=== PATIENT | female | born 1955 | race Caucasian/White ===

== ENCOUNTER 2020-10-21 11:00 | Outpatient (RCR) | payer MEDICARE, SELFPAY ==
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
--- NOTE | 2020-08-20 13:59 | P.PNPS_ITS ---
TMS Daily Progress Note Daily TMS Progress Note Week #: 1 Treatment #(10-30): 1 PHQ-9 Pre-Treatment (10-27): 18 at intake PHQ-9 Most Recent (10-27): 18 CGI-I Most Recent: 0 = Not Assessed Reviewed: TMS Mapping/Re-mapping completed (Uncomplicated initial mapping) Verification: I have reviewed the TMS Instructor Pilot Note and agree with the contents. The patient remains a candidate to continue TMS treatment per protocol.
--- NOTE | 2020-08-23 16:00 | HO.TMSDAILY2 ---
TMS Daily Progress Note Daily TMS Progress Note Week #: 1 Treatment #(10-30): 2 PHQ-9 Pre-Treatment (10-27): 18 PHQ-9 Most Recent (10-27): 18 CGI-I Most Recent: 0 = Not Assessed Reviewed: TMS Tech Note Reviewed Verification: I have reviewed the TMS Bricklayer Tender Note and agree with the contents. The patient remains a candidate to continue TMS treatment per protocol.
--- NOTE | 2020-08-23 16:03 | P.PNPS_ITS ---
TMS Daily Progress Note Daily TMS Progress Note Week #: 1 Treatment #(10-30): 2 PHQ-9 Pre-Treatment (10-27): 18 PHQ-9 Most Recent (10-27): 18 CGI-I Most Recent: 0 = Not Assessed Reviewed: TMS Tech Note Reviewed Verification: I have reviewed the TMS Supervisor Floor Assembly Note and agree with the contents. The patient remains a candidate to continue TMS treatment per protocol.
--- NOTE | 2020-08-24 23:14 | P.PNPS_ITS ---
TMS Daily Progress Note Daily TMS Progress Note Date of Service: 08/31/20 Week #: 1 Treatment #(10-30): 3 PHQ-9 Pre-Treatment (10-27): 18 PHQ-9 Most Recent (10-27): 18 CGI-I Most Recent: 0 = Not Assessed Reviewed: TMS Tech Note Reviewed Verification: I have reviewed the TMS Superintendent Laundry Note and agree with the contents. The patient remains a candidate to continue TMS treatment per protocol.
--- NOTE | 2020-08-25 05:45 | HO.TMSDAILY2 ---
TMS Daily Progress Note Daily TMS Progress Note Date of Service: 08/26/20 Week #: 1 Treatment #(10-30): 4 PHQ-9 Pre-Treatment (-): 18 PHQ-9 Most Recent (10-27): 14 CRISTOBAL-7 Pre-Treatment (0-21): 5 CRISTOBAL-7 Most Recent (0-21): 5 CGI-I Most Recent: 4 = No Change Q-LES-Q-SF Most Recent: 25 Reviewed: TMS Tech Note Reviewed Verification: I have reviewed the TMS Special Education Coordinator Note and agree with the contents. The patient remains a candidate to continue TMS treatment per protocol.
--- NOTE | 2020-08-30 17:28 | HO.TMSDAILY2 ---
TMS Daily Progress Note Daily TMS Progress Note Date of Service: 08/30/20 Week #: 1 Treatment #(10-30): 5 PHQ-9 Pre-Treatment (-): 18 PHQ-9 Most Recent (10-27): 14 CRISTOBAL-7 Pre-Treatment (0-21): 5 CRISTOBAL-7 Most Recent (0-21): 5 CGI-I Most Recent: 4 = No Change Q-LES-Q-SF Most Recent: 25 Reviewed: TMS Tech Note Reviewed Verification: I have reviewed the TMS Package Dyeing Machine Operator Note and agree with the contents. The patient remains a candidate to continue TMS treatment per protocol.
--- NOTE | 2020-08-31 23:22 | HO.TMSDAILY2 ---
TMS Daily Progress Note Daily TMS Progress Note Date of Service: 08/31/20 Week #: 2 Treatment #(-30): 6 PHQ-9 Pre-Treatment (1-): 18 PHQ-9 Most Recent (-): 14 CRISTOBAL-7 Pre-Treatment (0-21): 5 CRISTOBAL-7 Most Recent (0-21): 5 CGI-I Most Recent: 4 = No Change Q-LES-Q-SF Most Recent: 25 Reviewed: TMS Tech Note Reviewed Verification: I have reviewed the TMS Institution Librarian Note and agree with the contents. The patient remains a candidate to continue TMS treatment per protocol.
--- NOTE | 2020-09-01 08:12 | HO.TMSDAILY2 ---
TMS Daily Progress Note Daily TMS Progress Note Date of Service: 09/01/20 Week #: 2 Treatment #(-30): 7 PHQ-9 Pre-Treatment (1-): 18 PHQ-9 Most Recent (-): 14 CRISTOBAL-7 Pre-Treatment (0-21): 5 CRISTOBAL-7 Most Recent (0-21): 5 CGI-I Most Recent: 4 = No Change Q-LES-Q-SF Most Recent: 25 Reviewed: TMS Tech Note Reviewed Verification: I have reviewed the TMS Radio Repairer Domestic Note and agree with the contents. The patient remains a candidate to continue TMS treatment per protocol.
--- NOTE | 2020-09-02 16:49 | HO.TMSDAILY2 ---
TMS Daily Progress Note Daily TMS Progress Note Date of Service: 09/02/20 Week #: 2 Treatment #(-30): 8 PHQ-9 Pre-Treatment (1-): 18 PHQ-9 Most Recent (-): 14 CRISTOBAL-7 Pre-Treatment (0-21): 5 CRISTOBAL-7 Most Recent (0-21): 5 CGI-I Most Recent: 4 = No Change Q-LES-Q-SF Most Recent: 25 Reviewed: TMS Tech Note Reviewed Verification: I have reviewed the TMS Retort Condenser Attendant Note and agree with the contents. The patient remains a candidate to continue TMS treatment per protocol.
--- NOTE | 2020-09-02 16:51 | HO.TMSDAILY2 ---
TMS Daily Progress Note Daily TMS Progress Note Date of Service: 09/03/20 Week #: 2 Treatment #(-30): 9 PHQ-9 Pre-Treatment (1-): 18 PHQ-9 Most Recent (-): 14 CRISTOBAL-7 Pre-Treatment (0-21): 5 CRISTOBAL-7 Most Recent (0-21): 5 CGI-I Most Recent: 4 = No Change Q-LES-Q-SF Most Recent: 25 Reviewed: TMS Tech Note Reviewed Verification: I have reviewed the TMS Supervisor Pyrotechnic Loading Note and agree with the contents. The patient remains a candidate to continue TMS treatment per protocol.
--- NOTE | 2020-09-06 19:02 | HO.TMSDAILY2 ---
TMS Daily Progress Note Daily TMS Progress Note Date of Service: 09/06/20 Week #: 2 Treatment #(-30): 10 PHQ-9 Pre-Treatment (1-): 18 PHQ-9 Most Recent (-): 14 CRISTOBAL-7 Pre-Treatment (0-21): 5 CRISTOBAL-7 Most Recent (0-21): 5 CGI-I Most Recent: 4 = No Change Q-LES-Q-SF Most Recent: 25 Reviewed: TMS Tech Note Reviewed Verification: I have reviewed the TMS Forest Practices Field Coordinator Note and agree with the contents. The patient remains a candidate to continue TMS treatment per protocol.
--- NOTE | 2020-09-07 20:40 | P.PNPS_ITS ---
TMS Daily Progress Note Daily TMS Progress Note Date of Service: 09/07/20 Week #: 3 Treatment #(-30): 11 PHQ-9 Pre-Treatment (1-): 18 PHQ-9 Most Recent (-): 14 CRISTOBAL-7 Pre-Treatment (0-21): 5 CRISTOBAL-7 Most Recent (0-21): 5 CGI-I Most Recent: 4 = No Change Q-LES-Q-SF Most Recent: 25 Reviewed: TMS Tech Note Reviewed Verification: I have reviewed the TMS Die Cutter Apprentice Note and agree with the contents. The patient remains a candidate to continue TMS treatment per protocol.
--- NOTE | 2020-09-08 20:53 | HO.TMSDAILY2 ---
TMS Daily Progress Note Daily TMS Progress Note Date of Service: 09/08/20 Week #: 3 Treatment #(-30): 12 PHQ-9 Pre-Treatment (1-): 18 PHQ-9 Most Recent (-): 14 CRISTOBAL-7 Pre-Treatment (0-21): 5 CRISTOBAL-7 Most Recent (0-21): 5 CGI-I Most Recent: 4 = No Change Q-LES-Q-SF Most Recent: 25 Reviewed: TMS Tech Note Reviewed Verification: I have reviewed the TMS Business Support Liaison Note and agree with the contents. The patient remains a candidate to continue TMS treatment per protocol.
--- NOTE | 2020-09-10 09:01 | P.PNPS_ITS ---
TMS Daily Progress Note Daily TMS Progress Note Date of Service: 09/09/20 Week #: 3 Treatment #(-30): 13 PHQ-9 Pre-Treatment (1-): 18 PHQ-9 Most Recent (10-27): 14 CRISTOBAL-7 Pre-Treatment (0-21): 5 CRISTOBAL-7 Most Recent (0-21): 5 CGI-I Most Recent: 4 = No Change Q-LES-Q-SF Most Recent: 25 Reviewed: TMS Tech Note Reviewed (Late entry for 09/09/20) Verification: I have reviewed the TMS Critical Care Registered Nurse Note and agree with the contents. The patient remains a candidate to continue TMS treatment per protocol.
--- NOTE | 2020-09-10 16:01 | P.PNPS_ITS ---
TMS Daily Progress Note Daily TMS Progress Note Date of Service: 09/10/20 Week #: 3 Treatment #(-30): 14 PHQ-9 Pre-Treatment (1-): 18 PHQ-9 Most Recent (-): 14 CRISTOBAL-7 Pre-Treatment (0-21): 5 CRISTOBAL-7 Most Recent (0-21): 5 CGI-I Most Recent: 4 = No Change Q-LES-Q-SF Most Recent: 25 Reviewed: TMS Tech Note Reviewed Verification: I have reviewed the TMS Slitter Cut Off Operator Note and agree with the contents. The patient remains a candidate to continue TMS treatment per protocol.
--- NOTE | 2020-09-13 15:01 | P.PNPS_ITS ---
TMS Daily Progress Note Daily TMS Progress Note Date of Service: 09/13/20 Week #: 3 Treatment #(-30): 15 PHQ-9 Pre-Treatment (1-): 18 PHQ-9 Most Recent (-): 14 CRISTOBAL-7 Pre-Treatment (0-21): 5 CRISTOBAL-7 Most Recent (0-21): 5 CGI-I Most Recent: 4 = No Change Q-LES-Q-SF Most Recent: 25 Reviewed: TMS Tech Note Reviewed Verification: I have reviewed the TMS Historical Site Guide Note and agree with the contents. The patient remains a candidate to continue TMS treatment per protocol.
--- NOTE | 2020-09-14 11:14 | HO.TMSDAILY2 ---
TMS Daily Progress Note Daily TMS Progress Note Date of Service: 09/14/20 Week #: 3 Treatment #(-30): 15 PHQ-9 Pre-Treatment (1-): 18 PHQ-9 Most Recent (-): 14 CRISTOBAL-7 Pre-Treatment (0-21): 5 CRISTOBAL-7 Most Recent (0-21): 5 CGI-I Most Recent: 4 = No Change Q-LES-Q-SF Most Recent: 25 Reviewed: TMS Tech Note Reviewed Verification: I have reviewed the TMS Program Research Specialist Note and agree with the contents. The patient remains a candidate to continue TMS treatment per protocol.
--- NOTE | 2020-09-14 11:16 | HO.TMSDAILY2 ---
TMS Daily Progress Note Daily TMS Progress Note Date of Service: 09/14/20 Week #: 4 Treatment #(-30): 16 PHQ-9 Pre-Treatment (1-): 18 PHQ-9 Most Recent (-): 14 CRISTOBAL-7 Pre-Treatment (0-21): 5 CRISTOBAL-7 Most Recent (0-21): 5 CGI-I Most Recent: 4 = No Change Q-LES-Q-SF Most Recent: 25 Reviewed: TMS Tech Note Reviewed Verification: I have reviewed the TMS Poolroom Table Attendant Note and agree with the contents. The patient remains a candidate to continue TMS treatment per protocol.
--- NOTE | 2020-09-15 15:46 | HO.TMSDAILY2 ---
TMS Daily Progress Note Daily TMS Progress Note Date of Service: 09/15/20 Week #: 4 Treatment #(-30): 17 PHQ-9 Pre-Treatment (1-): 18 PHQ-9 Most Recent (10-27): 14 CRISTOBAL-7 Pre-Treatment (0-21): 5 CRISTOBAL-7 Most Recent (0-21): 5 CGI-I Most Recent: 4 = No Change Q-LES-Q-SF Most Recent: 25 Reviewed: TMS Tech Note Reviewed Verification: I have reviewed the TMS Conveyor Technician Note and agree with the contents. The patient remains a candidate to continue TMS treatment per protocol.
--- NOTE | 2020-09-17 17:32 | HO.TMSDAILY2 ---
TMS Daily Progress Note Daily TMS Progress Note Date of Service: 09/17/20 Week #: 4 Treatment #(-30): 18 PHQ-9 Pre-Treatment (1-): 18 PHQ-9 Most Recent (10-27): 14 CRISTOBAL-7 Pre-Treatment (0-21): 5 CRISTOBAL-7 Most Recent (0-21): 5 CGI-I Most Recent: 4 = No Change Q-LES-Q-SF Most Recent: 25 Reviewed: TMS Tech Note Reviewed Verification: I have reviewed the TMS Senior Oracle Adf Developer Note and agree with the contents. The patient remains a candidate to continue TMS treatment per protocol.
--- NOTE | 2020-09-20 17:51 | HO.TMSDAILY2 ---
TMS Daily Progress Note Daily TMS Progress Note Date of Service: 09/21/20 Week #: 4 Treatment #(-30): 19 PHQ-9 Pre-Treatment (1-): 18 PHQ-9 Most Recent (-): 14 CRISTOBAL-7 Pre-Treatment (0-21): 5 CRISTOBAL-7 Most Recent (0-21): 5 CGI-I Most Recent: 4 = No Change Q-LES-Q-SF Most Recent: 25 Reviewed: TMS Tech Note Reviewed Verification: I have reviewed the TMS Software Validation Engineer Note and agree with the contents. The patient remains a candidate to continue TMS treatment per protocol.
--- NOTE | 2020-09-21 22:52 | HO.TMSDAILY2 ---
TMS Daily Progress Note Daily TMS Progress Note Date of Service: 09/21/20 Week #: 4 Treatment #(-30): 20 PHQ-9 Pre-Treatment (1-): 18 PHQ-9 Most Recent (-): 14 CRISTOBAL-7 Pre-Treatment (0-21): 5 CRISTOBAL-7 Most Recent (0-21): 5 CGI-I Most Recent: 4 = No Change Q-LES-Q-SF Most Recent: 25 Reviewed: TMS Tech Note Reviewed Verification: I have reviewed the TMS Train Station Agent Note and agree with the contents. The patient remains a candidate to continue TMS treatment per protocol.
--- NOTE | 2020-09-23 16:04 | HO.TMSDAILY2 ---
TMS Daily Progress Note Daily TMS Progress Note Date of Service: 09/23/20 Week #: 5 Treatment #(-30): 22 PHQ-9 Pre-Treatment (1-): 18 PHQ-9 Most Recent (-): 14 CRISTOBAL-7 Pre-Treatment (0-21): 5 CRISTOBAL-7 Most Recent (0-21): 5 CGI-I Most Recent: 4 = No Change Q-LES-Q-SF Most Recent: 25 Reviewed: TMS Tech Note Reviewed Verification: I have reviewed the TMS Vocational Trainer Note and agree with the contents. The patient remains a candidate to continue TMS treatment per protocol.
--- NOTE | 2020-09-27 23:55 | P.PNPS_ITS ---
TMS Daily Progress Note Daily TMS Progress Note Date of Service: 09/27/20 Week #: 5 Treatment #(-30): 23 PHQ-9 Pre-Treatment (1-): 18 PHQ-9 Most Recent (-): 14 CRISTOBAL-7 Pre-Treatment (0-21): 5 CRISTOBAL-7 Most Recent (0-21): 5 CGI-I Most Recent: 4 = No Change Q-LES-Q-SF Most Recent: 25 Reviewed: TMS Tech Note Reviewed Verification: I have reviewed the TMS Business Objects Developer Note and agree with the contents. The patient remains a candidate to continue TMS treatment per protocol.
--- NOTE | 2020-09-28 23:08 | P.PNPS_ITS ---
TMS Daily Progress Note Daily TMS Progress Note Date of Service: 09/28/20 Week #: 5 Treatment #(-): 24 PHQ-9 Pre-Treatment (1-): 18 PHQ-9 Most Recent (-): 14 CRISTOBAL-7 Pre-Treatment (0-21): 5 CRISTOBAL-7 Most Recent (0-21): 5 CGI-I Most Recent: 4 = No Change Q-LES-Q-SF Most Recent: 25 Reviewed: TMS Tech Note Reviewed Verification: I have reviewed the TMS Offset Assistant Press Operator Note and agree with the contents. The patient remains a candidate to continue TMS treatment per protocol.
--- NOTE | 2020-09-29 23:10 | P.PNPS_ITS ---
TMS Daily Progress Note Daily TMS Progress Note Date of Service: 09/29/20 Week #: 5 Treatment #(-): 25 PHQ-9 Pre-Treatment (1-): 18 PHQ-9 Most Recent (-): 14 CRISTOBAL-7 Pre-Treatment (0-21): 5 CRISTOBAL-7 Most Recent (0-21): 5 CGI-I Most Recent: 4 = No Change Q-LES-Q-SF Most Recent: 25 Reviewed: TMS Tech Note Reviewed Verification: I have reviewed the TMS Tube Trailer Filler Note and agree with the contents. The patient remains a candidate to continue TMS treatment per protocol.
--- NOTE | 2020-09-30 23:48 | P.PNPS_ITS ---
TMS Daily Progress Note Daily TMS Progress Note Date of Service: 10/04/20 Week #: 5 Treatment #(-): 26 PHQ-9 Pre-Treatment (-): 18 PHQ-9 Most Recent (10-27): 14 CRISTOBAL-7 Pre-Treatment (0-21): 5 CRISTOBAL-7 Most Recent (0-21): 5 CGI-I Most Recent: 4 = No Change Q-LES-Q-SF Most Recent: 25 Reviewed: TMS Tech Note Reviewed Verification: I have reviewed the TMS Radio Script Writer Note and agree with the contents. The patient remains a candidate to continue TMS treatment per protocol.
--- NOTE | 2020-10-04 23:52 | P.PNPS_ITS ---
TMS Daily Progress Note Daily TMS Progress Note Date of Service: 10/04/20 Week #: 6 Treatment #(-): 27 PHQ-9 Pre-Treatment (-): 18 PHQ-9 Most Recent (10-27): 14 CRISTOBAL-7 Pre-Treatment (0-21): 5 CRISTOBAL-7 Most Recent (0-21): 5 CGI-I Most Recent: 4 = No Change Q-LES-Q-SF Most Recent: 25 Reviewed: TMS Tech Note Reviewed Verification: I have reviewed the TMS Certified Prosthetist Note and agree with the contents. The patient remains a candidate to continue TMS treatment per protocol.
--- NOTE | 2020-10-05 22:59 | HO.TMSDAILY2 ---
TMS Daily Progress Note Daily TMS Progress Note Date of Service: 10/05/20 Week #: 6 Treatment #(-): 28 PHQ-9 Pre-Treatment (-): 18 PHQ-9 Most Recent (10-27): 14 CRISTOBAL-7 Pre-Treatment (0-21): 5 CRISTOBAL-7 Most Recent (0-21): 5 CGI-I Most Recent: 4 = No Change Q-LES-Q-SF Most Recent: 25 Reviewed: TMS Tech Note Reviewed Verification: I have reviewed the TMS Business Development Analyst Note and agree with the contents. The patient remains a candidate to continue TMS treatment per protocol.
--- NOTE | 2020-10-06 23:25 | P.PNPS_ITS ---
TMS Daily Progress Note Daily TMS Progress Note Date of Service: 10/06/20 Week #: 6 Treatment #(-): 29 PHQ-9 Pre-Treatment (-): 18 PHQ-9 Most Recent (10-27): 14 CRISTOBAL-7 Pre-Treatment (0-21): 5 CRISTOBAL-7 Most Recent (0-21): 5 CGI-I Most Recent: 4 = No Change Q-LES-Q-SF Most Recent: 25 Reviewed: TMS Tech Note Reviewed Verification: I have reviewed the TMS Director Of Nurses Registry Note and agree with the contents. The patient remains a candidate to continue TMS treatment per protocol.
--- NOTE | 2020-10-07 17:25 | P.PNPS_ITS ---
TMS Daily Progress Note Daily TMS Progress Note Date of Service: 10/08/20 Week #: 7 Treatment #(-): 31 PHQ-9 Pre-Treatment (-): 18 PHQ-9 Most Recent (10-27): 14 CRISTOBAL-7 Pre-Treatment (0-21): 5 CRISTOBAL-7 Most Recent (0-21): 5 CGI-I Most Recent: 4 = No Change Q-LES-Q-SF Most Recent: 25 Reviewed: TMS Tech Note Reviewed Verification: I have reviewed the TMS Pediatric Physical Therapy Assistant Note and agree with the contents. The patient remains a candidate to continue TMS treatment per protocol.
--- NOTE | 2020-10-11 22:22 | HO.TMSDAILY2 ---
TMS Daily Progress Note Daily TMS Progress Note Date of Service: 10/11/20 Week #: 7 Treatment #(-): 32 PHQ-9 Pre-Treatment (-): 18 PHQ-9 Most Recent (10-27): 14 CRISTOBAL-7 Pre-Treatment (0-21): 5 CRISTOBAL-7 Most Recent (0-21): 5 CGI-I Most Recent: 4 = No Change Q-LES-Q-SF Most Recent: 25 Reviewed: TMS Tech Note Reviewed Verification: I have reviewed the TMS Charter And Tour Bus Driver Note and agree with the contents. The patient remains a candidate to continue TMS treatment per protocol.
--- NOTE | 2020-10-13 09:42 | HO.TMSDAILY2 ---
TMS Daily Progress Note Daily TMS Progress Note Date of Service: 10/13/20 Week #: 7 Treatment #(-): 33 PHQ-9 Pre-Treatment (-): 18 PHQ-9 Most Recent (10-27): 14 CRISTOBAL-7 Pre-Treatment (0-21): 5 CRISTOBAL-7 Most Recent (0-21): 5 CGI-I Most Recent: 4 = No Change Q-LES-Q-SF Most Recent: 25 Reviewed: TMS Tech Note Reviewed Verification: I have reviewed the TMS Engineering Production Liaison Note and agree with the contents. The patient remains a candidate to continue TMS treatment per protocol.
--- NOTE | 2020-10-15 20:14 | HO.TMSDAILY2 ---
TMS Daily Progress Note Daily TMS Progress Note Date of Service: 10/18/20 Week #: 8 Treatment #(-): 34 PHQ-9 Pre-Treatment (-): 18 PHQ-9 Most Recent (10-27): 14 CRISTOBAL-7 Pre-Treatment (0-21): 5 CRISTOBAL-7 Most Recent (0-21): 5 CGI-I Most Recent: 4 = No Change Q-LES-Q-SF Most Recent: 25 Reviewed: TMS Tech Note Reviewed Verification: I have reviewed the TMS Laminating Machine Offbearer Note and agree with the contents. The patient remains a candidate to continue TMS treatment per protocol.
--- NOTE | 2020-10-19 21:58 | P.PNPS_ITS ---
TMS Daily Progress Note Daily TMS Progress Note Date of Service: 10/19/20 Week #: 8 Treatment #(-): 35 PHQ-9 Pre-Treatment (-): 18 PHQ-9 Most Recent (10-27): 14 CRISTOBAL-7 Pre-Treatment (0-21): 5 CRISTOBAL-7 Most Recent (0-21): 5 CGI-I Most Recent: 4 = No Change Q-LES-Q-SF Most Recent: 25 Reviewed: TMS Tech Note Reviewed Verification: I have reviewed the TMS Tanker Service Attendant Note and agree with the contents. The patient remains a candidate to continue TMS treatment per protocol.
--- NOTE | 2020-10-22 12:11 | P.PNPS_ITS ---
TMS Daily Progress Note Daily TMS Progress Note Date of Service: 10/22/20 Week #: 8 Treatment #(-): 36 PHQ-9 Pre-Treatment (-): 18 PHQ-9 Most Recent (10-27): 14 CRISTOBAL-7 Pre-Treatment (0-21): 5 CRISTOBAL-7 Most Recent (0-21): 5 CGI-I Most Recent: 4 = No Change Q-LES-Q-SF Most Recent: 25 Reviewed: TMS Tech Note Reviewed (pt completed tx no significant change ) Verification: I have reviewed the TMS Personal Injury Legal Assistant Note and agree with the contents. The patient remains a candidate to continue TMS treatment per protocol.
== END 2020-10-21 12:30 | disposition home or self-care (01) ==
LOC: HO.PTMS 11:00
PROVIDERS: PCP Internal Medicine; Visit Provider Psychiatry & Neurology Psychiatry
DX: F33.2 Major depressive disorder, recurrent severe without psychotic features (principal)
CPT/HCPCS: 90867; 90868

== ENCOUNTER 2023-03-21 06:28 | Day surgery (SDC) | payer MEDICARE, SELFPAY ==
--- NOTE | 2023-03-20 12:10 | P.CONAN_ITS ---
Documented by User: Danni Benoit NP 03/20/23 12:11 HPI - Anesthesia Eval Consult details Narrative: 67yo F for Upper Endoscopy with Balloon Dilitation, Colonoscopy Cardiac optimized. To continue asa throughout periop. PMF Active Problems Active Problems: All Active Problems (Updated 03/20/23 @ 11:44 by Carie Carrion, JALYN) Major depressive disorder, recurrent severe without psychotic features (Acute) Past Medical History Medical History (Updated 03/20/23 @ 12:10 by Danni Benoit NP) Arthritis Asthma Cervical spine disease Fibromyalgia GERD (gastroesophageal reflux disease) HTN (hypertension) IBS (irritable bowel syndrome) SC (myocardial infarction) Sleep apnea Surgical History Surgical History (Updated 03/20/23 @ 11:44 by Carie Carrion RN) H/O bilateral salpingo-oophorectomy H/O colonoscopy H/O esophagogastroduodenoscopy H/O foot surgery H/O rectocele repair History of ankle surgery History of back surgery History of left knee replacement History of Sigrid fundoplication Social History Social History Patient Tobacco Use Status: Former Tobacco user Quit Date: 30 years ago Use of substances other than those prescribed or required for medical reasons: No Are you DNR?: No Advance Directives: No Advance Directives Information Provided: Yes Meds Allergies Allergy/AdvReac Type Severity Reaction Status Date / Time lactose [LACTOSE] Allergy Intermediate GI SYMPTOMS Unverified 06/17/20 15:44 phenazopyridine Allergy Intermediate RASH Unverified 06/17/20 15:44 [From PYRIDIUM] Sulfa (Sulfonamide Allergy Intermediate RASH Unverified 06/17/20 15:44 Antibiotics) [SULFA (SULFONAMIDE ANTIBIOTICS)] cobalt Allergy Unknown Verified 03/20/23 11:45 nickel Allergy Unknown Verified 03/20/23 11:45 oxycodone [OXYCODONE] AdvReac Severe PALPITATION Unverified 06/17/20 15:44 S/NIGHTMARE S ondansetron AdvReac Intermediate HEADACHE Unverified 06/17/20 15:44 [From ZOFRAN ( HYDROCHLORIDE)] Home Medications Medication Instructions Recorded Confirmed Last Taken Type aspirin 81 mg chewable tablet 1 tab PO DAILY 03/20/23 03/20/23 Unknown History atorvastatin 80 mg tablet 80 mg PO DAILY 03/20/23 03/20/23 Unknown History bupropion HCl 150 mg 24 hr tablet, 150 mg PO QAM 03/20/23 03/20/23 Unknown History extended release bupropion HCl 300 mg 24 hr tablet, 300 mg PO QAM 03/20/23 03/20/23 Unknown History extended release carisoprodol 350 mg tablet 350 mg PO BID 03/20/23 03/20/23 Unknown History celecoxib 200 mg capsule 200 mg PO BID 03/20/23 03/20/23 Unknown History clonazepam 1 mg tablet 1 - 2 mg PO BEDTIME PRN Insomnia 03/20/23 03/20/23 Unknown History cyanocobalamin (vitamin B-12) 1,000 mcg subcut Q4W 03/20/23 03/20/23 Unknown History 1,000 mcg/mL injection solution gabapentin 300 mg capsule 300 mg PO TID 03/20/23 03/20/23 Unknown History lisinopril 5 mg tablet 5 mg PO DAILY 03/20/23 03/20/23 Unknown History magnesium oxide 400 mg (241.3 mg 400 mg PO DAILY 03/20/23 03/20/23 Unknown History magnesium) tablet metoprolol succinate 25 mg 37.5 mg PO DAILY 03/20/23 03/20/23 Unknown History tablet,extended release 24 hr pantoprazole 40 mg tablet,delayed 40 mg PO DAILY 03/20/23 03/20/23 Unknown History release trazodone 150 mg tablet 150 mg PO BEDTIME 03/20/23 03/20/23 Unknown History vilazodone 20 mg tablet 20 mg PO DAILY 03/20/23 03/20/23 Unknown History Exam Exam Date and Time: March 20, 2023 121 Assessment and Plan Assessment Anesthesia Assessment: Chart Reviewed Documented by User: Delaney Quinn MD 03/21/23 08:25 [facility] Past Medical History Medical History (Updated 03/20/23 @ 12:10 by Danni Benoit NP) Arthritis Asthma Cervical spine disease Fibromyalgia GERD (gastroesophageal reflux disease) HTN (hypertension) IBS (irritable bowel syndrome) SC (myocardial infarction) Sleep apnea Family History Family history of problems with anesthesia: No Surgical History Surgical History (Updated 03/20/23 @ 11:44 by Carie Carrion RN) H/O bilateral salpingo-oophorectomy H/O colonoscopy H/O esophagogastroduodenoscopy H/O foot surgery H/O rectocele repair History of ankle surgery History of back surgery History of left knee replacement History of Sigrid fundoplication History of Problems with Anesthesia: No Social History Social History Patient Tobacco Use Status: Former Tobacco user Quit Date: 30 years ago Use of substances other than those prescribed or required for medical reasons: No Are you DNR?: No Advance Directives: No Advance Directives Information Provided: Yes Meds Allergies Allergy/AdvReac Type Severity Reaction Status Date / Time lactose [LACTOSE] Allergy Intermediate GI SYMPTOMS Unverified 06/17/20 15:44 phenazopyridine Allergy Intermediate RASH Unverified 06/17/20 15:44 [From PYRIDIUM] Sulfa (Sulfonamide Allergy Intermediate RASH Unverified 06/17/20 15:44 Antibiotics) [SULFA (SULFONAMIDE ANTIBIOTICS)] cobalt Allergy Unknown Verified 03/20/23 11:45 nickel Allergy Unknown Verified 03/20/23 11:45 oxycodone [OXYCODONE] AdvReac Severe PALPITATION Unverified 06/17/20 15:44 S/NIGHTMARE S ondansetron AdvReac Intermediate HEADACHE Unverified 06/17/20 15:44 [From ZOFRAN ( HYDROCHLORIDE)] Home Medications Medication Instructions Recorded Confirmed Last Taken Type aspirin 81 mg chewable tablet 1 tab PO DAILY 03/20/23 03/20/23 Unknown History atorvastatin 80 mg tablet 80 mg PO DAILY 03/20/23 03/20/23 Unknown History bupropion HCl 150 mg 24 hr tablet, 150 mg PO QAM 03/20/23 03/20/23 Unknown History extended release bupropion HCl 300 mg 24 hr tablet, 300 mg PO QAM 03/20/23 03/20/23 Unknown History extended release carisoprodol 350 mg tablet 350 mg PO BID 03/20/23 03/20/23 Unknown History celecoxib 200 mg capsule 200 mg PO BID 03/20/23 03/20/23 Unknown History clonazepam 1 mg tablet 1 - 2 mg PO BEDTIME PRN Insomnia 03/20/23 03/20/23 Unknown History cyanocobalamin (vitamin B-12) 1,000 mcg subcut Q4W 03/20/23 03/20/23 Unknown History 1,000 mcg/mL injection solution gabapentin 300 mg capsule 300 mg PO TID 03/20/23 03/20/23 Unknown History lisinopril 5 mg tablet 5 mg PO DAILY 03/20/23 03/20/23 Unknown History magnesium oxide 400 mg (241.3 mg 400 mg PO DAILY 03/20/23 03/20/23 Unknown History magnesium) tablet metoprolol succinate 25 mg 37.5 mg PO DAILY 03/20/23 03/20/23 Unknown History tablet,extended release 24 hr pantoprazole 40 mg tablet,delayed 40 mg PO DAILY 03/20/23 03/20/23 Unknown History release trazodone 150 mg tablet 150 mg PO BEDTIME 03/20/23 03/20/23 Unknown History vilazodone 20 mg tablet 20 mg PO DAILY 03/20/23 03/20/23 Unknown History Exam Airway Mallampati Class: I TM Dist: >3cm Neck ROM: Limited (lateral slightly limited dt disc disease flexion axtension good noparasthesias toay) Loose/Missing/Broken Teeth: No Heart: rr Lungs: cta Assessment and Plan Assessment Anesthesia Assessment: Anesthesia Plan Discussed Final Anesthetic Review Family History of Problems with Anesthesia: No History of Problems with Anesthesia: No NPO: Yes ASA Class: II Final Preanesthetic Review: No Changes in Pt Med Stat, Meds/Allgs Chart Reviewed, Consent Obtained/Reviewed and Anes Risks/Benef Reviewed Patient Risk: Low Procedure Risk: Low Anesthetic Plan Anesthetic Plan: MAC: Disposition: Standard PACU
[2023-03-21 06:48] VITALS: BP 117/54; PULSE 83; RESP 18; TEMP 36.2; O2SAT 97; BMI 29.2
[2023-03-21] MEDS: Lactated Ringers 1,000 ML 100 ML IVCONT (07:22)
[2023-03-21 08:57] VITALS: BP 125/71; PULSE 73; RESP 16; TEMP 36.1; O2SAT 100
--- NOTE | 2023-03-21 09:03 | P.BOP_ITS ---
Brief Operative Note Date of Service: 03/21/23 Pre-op diagnosis: GERD Screening Post-op diagnosis: other (Hiatal hernia, Duodenitis, Diverticulosis) Procedure: EGD with bx and Balloon dilation 19-20mm, Colonoscopy to the cecum and TI Surgeon: Denny Whitehead Anesthesia: MAC Was an Pull[employer] Car Rep[employer] used for this Procedure?: No Estimated blood loss (mL): 2.0 Pathology: other (A. Descending duodenum B. Gastric antrum C. EG Junction at 34cm D. Esophagus 20-25cm) Condition: stable Disposition: PACU
[2023-03-21 09:12] VITALS: BP 130/82; PULSE 69; RESP 16; TEMP 36.1; O2SAT 98
--- NOTE | 2023-03-21 09:19 | OP_ITS ---
DATE OF SERVICE: 03/21/2023 SURGEON: Denny Whitehead MD INDICATIONS: The patient presents for evaluation of chronic gastroesophageal reflux, intermittent dysphagia, diarrhea, family history of colon polyps, and colorectal cancer screening. Full consent obtained from her for this, including risks of bleeding and perforation. PREOPERATIVE DIAGNOSIS: POSTOPERATIVE DIAGNOSIS: PROCEDURE PERFORMED: ESTIMATED BLOOD LOSS: COMPLICATIONS: ANESTHESIA: Monitored anesthesia care. ASSISTANTS: SPECIMENS: PREOPERATIVE DIAGNOSES: Gastroesophageal reflux, dysphagia, diarrhea, family history of colon polyps, and colorectal cancer screening. POSTOPERATIVE DIAGNOSES: Gastroesophageal reflux, dysphagia, diarrhea, family history of colon polyps, and colorectal cancer screening, hiatal hernia, duodenitis, rule out celiac disease, diverticulosis, and internal hemorrhoids. PROCEDURES PERFORMED: 1. Esophagogastroduodenoscopy with balloon dilation of gastroesophageal junction and biopsies. 2. Colonoscopy to the cecum and terminal ileum. DESCRIPTION OF PROCEDURE: The patient was placed in the left lateral decubitus position. The Beryllium video gastroscope was passed into the posterior oropharynx and upper esophagus under direct vision. The scope was passed slowly into the distal esophagus. The gastroesophageal junction appeared at 34 cm. There was some slight irregularity, consistent with reflux and possibly small areas of Kimble's mucosa. There was no esophagitis. The scope entered the stomach. There was a small hiatal hernia. The scope was advanced to the pylorus and the duodenum was cannulated to the descending portion. The duodenum including the bulb was carefully inspected and appeared normal other than some mild changes of duodenitis in the duodenal bulb. There was no erosions or ulceration. Biopsies were obtained from the second and third portions of duodenum. The scope was withdrawn back to the stomach. The gastric antrum had some mild areas of erythema, but no erosions or ulceration. There was good peristalsis. Biopsies were obtained from the gastric antrum. The scope was retroflexed visualizing the proximal stomach carefully, which appeared normal, without any sign of mass or ulceration. I did not visualize any definitive wrap from her previous fundoplication. The scope was straightened and withdrawn back to the esophagus. The gastroesophageal junction appeared patent, but given her symptoms of dysphagia, I did use a [employer] incremental balloon to dilate the gastroesophageal junction from 19 mm to 20 mm at the recommended pressure, between 30 and 60 seconds each. Post dilation there was no appreciable change in the gastroesophageal junction nor any heme. I did obtain biopsies at the EG junction at 34 cm. Proximal to this, the esophageal mucosa appeared normal. There was no evidence of any proximal esophageal rings nor webs. Biopsies were obtained between 20 and 25 cm. The scope was withdrawn from the patient. She was turned around for colonoscopy. The digital rectal exam revealed no abnormalities. The Olympus video pediatric colonoscope was entered into the rectum and advanced easily to the cecum. Once in the cecum, I did identify normal-appearing cecal pouch with appendiceal orifice and a normal-appearing ileocecal valve. The terminal ileum was cannulated and appeared normal. The scope withdrawn back in the colon. The entire cecum and ileocecal valve appeared normal. The scope was slowly I did not visualize any sign of polyps, colitis, nor angiodysplasia. There was a mild amount of sigmoid diverticulosis. In the rectum, scope was retroflexed visualizing some internal hemorrhoids, but no other pathology. The rectal mucosa appeared normal. The scope was straightened and withdrawn from the patient. She tolerated the procedure well and was returned to the recovery area in stable condition. IMPRESSION: 1. Hiatal hernia, rule out Kimble's esophagus. 2. Duodenitis. 3. Rule out celiac disease. 4. Rule out gastritis and Helicobacter pylori. 5. Rule out eosinophilic esophagitis. 6. Diverticulosis. 7. Internal hemorrhoids. PLAN: The results of the biopsies will be checked. She will continue her daily pantoprazole. She was advised to continue to use Imodium on a regular basis and hyoscyamine as needed. She was advised to resume her aspirin tomorrow. She was advised not to use any NSAIDs for least 1 week. I would recommend a repeat colonoscopy in 5 years. If things are stable, she will see me on a p.r.n. basis, but was advised to call me as needed. MD DORI Handy/WOLF / [id number] MARYAM
== END 2023-03-21 09:51 | disposition home or self-care (01) ==
PROVIDERS: PCP Internal Medicine; Visit Provider Internal Medicine
PROC: (CPT 43249; principal; 2023-03-21 07:30)
PROC: 0DJD8ZZ Inspection of Lower Intestinal Tract, Via Natural or Artificial Opening Endoscopic (ICD-10-PCS; CPT 45378; 2023-03-21 07:30)
DX: Z12.11 Encounter for screening for malignant neoplasm of colon (principal); Z80.0 Family history of malignant neoplasm of digestive organs; Z83.71 Family history of colonic polyps; K57.30 Diverticulosis of large intestine without perforation or abscess without bleeding; K64.8 Other hemorrhoids; K58.2 Mixed irritable bowel syndrome; R13.19 Other dysphagia; K21.9 Gastro-esophageal reflux disease without esophagitis; K29.80 Duodenitis without bleeding; K44.9 Diaphragmatic hernia without obstruction or gangrene; K22.4 Dyskinesia of esophagus; J45.909 Unspecified asthma, uncomplicated; I10 Essential (primary) hypertension; M79.7 Fibromyalgia; G47.30 Sleep apnea, unspecified; I25.2 Old myocardial infarction; Z95.5 Presence of coronary angioplasty implant and graft; Z79.82 Long term (current) use of aspirin; Z79.899 Other long term (current) drug therapy; Z99.89 Dependence on other enabling machines and devices; Z88.2 Allergy status to sulfonamides; Z88.8 Allergy status to other drugs, medicaments and biological substances; Z98.890 Other specified postprocedural states; Z87.891 Personal history of nicotine dependence
CPT/HCPCS: 43249; 43239; G0105; 88305; 88342; C1726